=== PATIENT | male | born 1985 | race Caucasian/White ===

== ENCOUNTER → 2017-12-16 | Outpatient (CLI) | payer BC ==
[~2017-12-16] MED LIST: AMLO10TA2 PO; CYCL10TA2 PO; HYDR-2758 PO; LOSA50TA6 PO
--- NOTE | 2017-12-16 10:00 | KCIC ---
EXAM: Cervical spine, 3 views. HISTORY: Pain and stiffness. COMPARISON: None. FINDINGS: 3 views of the cervical spine are obtained. There is mild reversal of cervical lordosis centered at C5. There is no listhesis. The vertebral bodies are normal in height and the disc spaces are preserved. IMPRESSION: No acute osseous finding. Electronically signed by: Jhoana Browning MD (12/16/2017 9:56 AM) [id number]
== END | disposition home or self-care (01) ==
LOC: KCIC 09:13
PROVIDERS: ATTEND Physician Assistant Medical
DX: M40.292 Other kyphosis, cervical region (principal)
CPT/HCPCS: 72040